=== PATIENT | male | born 1975 | race Caucasian/White ===

== ENCOUNTER 2022-10-28 11:55 | Emergency (ER) | payer BC, SELFPAY ==
--- OUTSIDE RECORDS SUMMARY | 2022-10-28 11:59 | XMS REPORT | Continuity of Care Document ---
:1975 Author Organization [facility] t Address [address] [place] [id number] Care Team Providers Name Role Phone Jonny HOGAN, Millie Rainey Primary Care Physician [phone] MINDI PATRICK Attending Clinician Unavailable MAGALIS FAUSTIN Attending Clinician Unavailable LAB90 Attending Clinician Unavailable MILLIE BLOUNT Attending Clinician Unavailable DALE BAUTISTA Attending Clinician Unavailable JOSE VILLAGOMEZ Attending Clinician Unavailable JOSE BARRON Attending Clinician Unavailable CARIDAD DUDLEY Attending Clinician Unavailable MOHSEN MAGAÑA Attending Clinician Unavailable Rebeca Ray Attending Clinician Heavenly Parada PA-C Attending Clinician [phone] ASHWINI SIMEON Attending Clinician Unavailable Ashwini Smith Attending Clinician JOSTIN BAILON Attending Clinician Unavailable Millie Blount MD Attending Clinician [phone] Payers Payer Name Policy Type Policy Number Effective Date Expiration Date S suzi BCBS 2 [id number] 2021 00:00:00 Problems Condition Condition Condition Status Onset Resolution Last Treating Co mments Source Name Details Category Date Date Treatment Clinician Date Pharyngiti Pharyngiti Disease Active Overview : Aurroa miller 3-13 [facility] 00:00: g of note Externa might be l different from the original. AcuteDaug hter has strep throatLas t Assessmen t & Plan: Formattin g of this note might be different from the original. Not Controlle d amoxicill in 875mg po twice daily for 10 days. Continue to drink fluids and take tylenol as needed for pain/feve rs. Work note-off till 09/04/22Ca ll pcp if no improveme nt in 3-4 days. Patient verbalize d nora ferrer. No known No known Disease Kelse y active active Seybold problems problems - Externa l Allergies, Adverse Reactions, Alerts Allergy Allergy Status Severity Reaction(s) Onset Inactive Treating Comm ents Source Name Type Date Date Clinician Tramadol Propensi Active Other Drowsy, Kelse y ty to 6-24 sedated Seybold adverse 00:00: - reaction 00 Externa s l Social History Social Habit Start Date Stop Date Quantity Comments Source Gender identity 2022-06-29 Identifies as male Rasheed de luna Seybold 08:42:02 gender (finding) - Manager Underwriting al Sexual orientation 2022-06-29 Heterosexual Keena johansen Seybold 08:42:02 (finding) - External History of tobacco Current smoker Riley ram Seybasher use - External History of Social 2021-09-09 2021-09-09 [facility] Vallejoybold function 00:00:00 00:00:00 - External Tobacco use and 2021-09-09 2021-09-09 Smokeless tobacco Riley ram Seybold exposure 00:00:00 00:00:00 non-user - External Sex Ass[birth year] At [birth year] M [facility] Vallejo ybasher 00:00:00 00:00:00 - External Smoking Status Start Date Stop Date Source Ex-smoker 2021-09-09 00:00:00 2021-09-09 00:00:00 [facility] johansenbold - External Medications Ordered Filled Start Stop Current Ordering Indication Dosage Frequency Signature Comments Components Source Medication Medication Date Date Medication? Clinician (SIG) Name Name Albuterol Yes 2{puff} Q4H Inhale 2 K elsey Sulfate 108 5-09 puffs into ybold (90 Base) 10:30: the lungs - MCG/ACT 21 every 4 Externa inhalation hours as l AEROSOL needed POWDER, BREATH ACTIVATED Levalbutero 2023-0 Yes 1.25mg Q4H Take 0.5 [facility] l HCl 1.25 5-09 mL (1.25 Seybo ld MG/0.5ML 10:30: mg total) - inhalation 21 by Externa Inhalant nebulizati l Solution on every 4 hours as needed for wheezing Albuterol 0 Yes 2.5mg Take 2.5 Jr sey Sulfate 2.5 5-09 mg by Seybold MG/0.5ML 10:30: nebulizati - inhalation 21 on 4 times Ext adam Inhalant daily l Solution Montelukast Yes [id number] 10mg Take 1 [facility] (SINGULAIR) 4-18 tablet (10 Se ybold 10 MG oral 00:00: mg total) - Tablet 00 by mouth Externa tablet nightly l Tiotropium Yes 2{puff} Inhale 2 [facility] Warner-Olo 4-18 puffs into Se ybold daterol 00:00: the lungs - (Stiolto 00 daily Externa Respimat) l 2.5-2.5 MCG/ACT inhalation Aerosol Solution Allopurinol Yes [id number] 300mg Take 1 [facility] 300 MG oral 4-18 tablet Seybol d Tablet 00:00: (300 mg - 00 total) by Externa mouth l daily Omeprazole Yes [id number] 40mg Take 1 [facility] 40 MG oral 4-18 capsule Seybol d Delayed 00:00: (40 mg - Release 00 total) by Externa Capsule mouth l daily Atorvastati 0 Yes [id number] 20mg Take 1 [facility] n Calcium 4-18 tablet (20 Seyb old 20 MG oral 00:00: mg total) - Tablet 00 by mouth Externa daily l Albuterol 0 Yes [id number] 2{puff} Q.25D Inhale 2 [facility] HFA 108 (90 4-18 puffs into Se ybold Base) 00:00: the lungs - MCG/ACT IN 00 every 6 Manager Underwriting a AERS hours as l needed for wheezing Montelukast 0 Yes [id number] 10mg Take 1 [facility] (SINGULAIR) 4-18 tablet (10 Se ybold 10 MG oral 00:00: mg total) - Tablet 00 by mouth Externa tablet nightly l Tiotropium Yes 2{puff} Inhale 2 [facility] Warner-Olo 4-[facility]: the lungs - (Stiolto 00 daily Externa Respimat) l 2.5-2.5 MCG/ACT inhalation Aerosol Solution Allopurinol Yes [id number] 300mg Take 1 [facility] 300 MG oral 4-18 tablet Seybol d Tablet 00:00: (300 mg - 00 total) by Externa mouth l daily Omeprazole Yes [id number] 40mg Take 1 [facility] 40 MG oral 4-18 capsule Seybol d Delayed 00:00: (40 mg - Release 00 total) by Externa Capsule mouth l daily Atorvastati Yes [id number] 20mg Take 1 [facility] n Calcium 4-18 tablet (20 Seyb old 20 MG oral 00:00: mg total) - Tablet 00 by mouth Externa daily l Albuterol Yes [id number] 2{puff} Q.25D Inhale 2 [facility] HFA 108 (90 4-18 puffs into ybold Base) 00:00: the lungs - MCG/ACT IN 00 every 6 Manager Underwriting a AERS hours as l needed for wheezing Pneumococca 2022- No [id number] Administer [facility] l 15-Mallika 4-18 04-18 one. Seybold Conj 00:00: 00:00 - Vaccine 00 :00 Externa (VAXNEUVANC l E) 0.5 mL Intramuscul ar Suspension Omeprazole 2022- No [id number] TAKE 1 [facility] 20 MG oral 4-03 04-18 CAPSULE BY Se ybold Delayed 00:00: 00:00 MOUTH IN - Release 00 :00 THE Externa Capsule EVENING l AND 1 CAPSULE BY MOUTH IN THE EVENING Allopurinol 2022- No [id number] Take 1 [facility] 300 MG oral 3-27 04-18 tablet by Se ybold Tablet 00:00: 00:00 mouth once - 00 :00 daily Externa l Atorvastati 2022- No [id number] Take 1 [facility] n Calcium 3-27 04-18 tablet by Seyb old 20 MG oral 00:00: 00:00 mouth once - Tablet 00 :00 daily Externa l Montelukast 2022-0 3- No [id number] Take 1 [facility] (SINGULAIR) 3-27 04-18 tablet by Se ybold 10 MG oral 00:00: 00:00 mouth - Tablet 00 :00 nightly Externa tablet l Amoxicillin 2022-0 Yes [id number] 875mg Take 1 [facility] 875 MG oral 3-13 tablet Seybol d Tablet 00:00: (875 mg - 00 total) by Externa mouth 2 l times daily Amoxicillin 2022-0 Yes [id number] 875mg Take 1 [facility] 875 MG oral 3-13 tablet Seybol d Tablet 00:00: (875 mg - 00 total) by Externa mouth 2 l times daily Amoxicillin 2022-0 Yes [id number] 875mg Take 1 [facility] 875 MG oral 3-13 tablet Seybol d Tablet 00:00: (875 mg - 00 total) by Externa mouth 2 l times daily Albuterol Yes 2.5mg Take 2.5 Jr sey Sulfate 2.5 1-09 mg by Seybold MG/0.5ML 09:32: nebulizati - inhalation 36 on 4 times Ext adam Inhalant daily l Solution Albuterol 0 Yes 2{puff} Q4H Inhale 2 K elsey Sulfate 108 1-09 puffs into Se ybold (90 Base) 09:32: the lungs - MCG/ACT 36 every 4 Externa inhalation hours as l AEROSOL needed POWDER, BREATH ACTIVATED Levalbutero Yes 1.25mg Q4H Take 1.25 [facility] l HCl 1.25 1-09 mg by Seybold MG/0.5ML 09:32: nebulizati - inhalation 36 on every 4 Ext adam Inhalant hours as l Solution needed for wheezing Albuterol Yes 2.5mg Take 2.5 Jr sey Sulfate 2.5 1-09 mg by Seybold MG/0.5ML 09:32: nebulizati - inhalation 36 on 4 times Ext adam Inhalant daily l Solution Albuterol 0 Yes 2{puff} Q4H Inhale 2 K elsey Sulfate 108 1-09 puffs into Se ybold (90 Base) 09:32: the lungs - MCG/ACT 36 every 4 Externa inhalation hours as l AEROSOL needed POWDER, BREATH ACTIVATED Levalbutero Yes 1.25mg Q4H Take 1.25 [facility] l HCl 1.25 1-09 mg by Seybold MG/0.5ML 09:32: nebulizati - inhalation 36 on every 4 Ext adam Inhalant hours as l Solution needed for wheezing Albuterol Yes 2.5mg Take 2.5 Jr sey Sulfate 2.5 1-09 mg by Seybold MG/0.5ML 09:32: nebulizati - inhalation 36 on 4 times Ext adam Inhalant daily l Solution Albuterol 0 Yes 2{puff} Q4H Inhale 2 K elsey Sulfate 108 1-09 puffs into Se ybold (90 Base) 09:32: the lungs - MCG/ACT 36 every 4 Externa inhalation hours as l AEROSOL needed POWDER, BREATH ACTIVATED Levalbutero Yes 1.25mg Q4H Take 1.25 [facility] l HCl 1.25 1-09 mg by Seybold MG/0.5ML 09:32: nebulizati - inhalation 36 on every 4 Ext adam Inhalant hours as l Solution needed for wheezing Albuterol Yes 2.5mg Take 2.5 Jr sey Sulfate 2.5 1-09 mg by Seybold MG/0.5ML 09:32: nebulizati - inhalation 36 on 4 times Ext adam Inhalant daily l Solution Albuterol 0 Yes 2{puff} Q4H Inhale 2 K elsey Sulfate 108 1-09 puffs into Se ybold (90 Base) 09:32: the lungs - MCG/ACT 36 every 4 Externa inhalation hours as l AEROSOL needed POWDER, BREATH ACTIVATED Levalbutero 0 Yes 1.25mg Q4H Take 1.25 [facility] l HCl 1.25 1-09 mg by Seybold MG/0.5ML 09:32: nebulizati - inhalation 36 on every 4 Ext adam Inhalant hours as l Solution needed for wheezing Azithromyci 2022-0 3- No [id number] Take 2 [facility] n 250 MG 06-29-15 tablets by Seyb old oral Tablet 00:00: 05:59 mouth on - 00 :00 day 1 then Externa 1 tablet l by mouth daily for 4 days thereafter . Azithromyci 2022- No [id number] Take 2 [facility] n 250 MG 06-29 tablets by Seyb old oral Tablet 00:00: 05:59 mouth on - 00 :00 day 1 then Externa 1 tablet l by mouth daily for 4 days thereafter . Omeprazole 2021-06 Yes [id number] TAKE 1 [facility] 20 MG oral 2-19 CAPSULE BY Lashonda bold Delayed 00:00: MOUTH IN - Release 00 THE Externa Capsule MORNING l AND 1 IN THE EVENING Omeprazole 2021-06 Yes [id number] TAKE 1 [facility] 20 MG oral 2-19 CAPSULE BY Lashonda [employer] Delayed 00:00: MOUTH IN - Release 00 THE Externa Capsule MORNING l AND 1 IN THE EVENING Omeprazole 2021-06 Yes [id number] TAKE 1 [facility] 20 MG oral 2-19 CAPSULE BY Lashonda [employer] Delayed 00:00: MOUTH IN - Release 00 THE Externa Capsule MORNING l AND 1 IN THE EVENING Tiotropium 2021-06 Yes [id number] 2{puff} Inhale 2 [facility] Warner-Olo 0-18 puffs into Se ybold daterol 00:00: the lungs - (Stiolto 00 daily Externa Respimat) l 2.5-2.5 MCG/ACT inhalation Aerosol Solution Tiotropium 2021-06 Yes [id number] 2{puff} Inhale 2 [facility] Warner-Olo 0-18 puffs into Se ybold daterol 00:00: the lungs - (Stiolto 00 daily Externa Respimat) l 2.5-2.5 MCG/ACT inhalation Aerosol Solution Tiotropium 2021-06 Yes [id number] 2{puff} Inhale 2 [facility] Warner-Olo 0-18 puffs into Se ybold daterol 00:00: the lungs - (Stiolto 00 daily Externa Respimat) l 2.5-2.5 MCG/ACT inhalation Aerosol Solution Tiotropium 2021-06- No [id number] 2{puff} Inhale 2 [facility] Warner-Olo 0-18 04-18 puffs into S eybold daterol 00:00: 00:00 the lungs - (Stiolto 00 :00 daily Externa Respimat) l 2.5-2.5 MCG/ACT inhalation Aerosol Solution Albuterol Yes 2.5mg Take 2.5 Jr sey Sulfate 2.5 6-07 mg by Seybold MG/0.5ML 18:34: nebulizati inhalation 08 on 4 times Inhalant daily Solution Tiotropium Yes 2{puff} Inhale 2 [facility] Warner-Olo 6-07 puffs into Se ybold daterol 18:33: the lungs (Stiolto 42 daily Respimat) 2.5-2.5 MCG/ACT inhalation Aerosol Solution Albuterol Yes 2{puff} Q4H Inhale 2 K elsey Sulfate 108 6-07 puffs into Se ybold (90 Base) 18:33: the lungs MCG/ACT 42 every 4 inhalation hours as AEROSOL needed POWDER, BREATH ACTIVATED Levalbutero Yes 1.25mg Q4H Take 1.25 [facility] l HCl 1.25 6-07 mg by Seybold MG/0.5ML 18:33: nebulizati inhalation 42 on every 4 Inhalant hours as Solution needed for wheezing Cetirizine 2021-2021- No 10mg Take 10 mg [facility] 10 MG oral 6- 06-07 by mouth Seyb old Tablet 18:33: 00:00 daily 42 :00 Amoxicillin Yes [id number] 1{tbl} Take 1 [facility] -Pot 6-07 tablet by Seybold Clavulanate 00:00: mouth in - 875-125 MG 00 the Externa oral Tablet morning l and 1 tablet in the evening. Benzonatate Yes [id number] 100mg Q.[id number] Take 1 [facility] 100 MG oral 6-07 [id number] capsule Seybold Capsule 00:00: 3D (100 mg - 00 total) by Externa mouth 3 l times daily as needed for cough FLUTICASONE 0 Yes [id number] 50ug Use 1 K elsey PROPIONATE, 6-07 spray (50 Sey bold NASAL, 50 00:00: mcg total) - MCG/ACT 00 in each Externa nasal nostril l Suspension daily Amoxicillin Yes [id number] 1{tbl} Take 1 [facility] -Pot 6-07 tablet by Seybold Clavulanate 00:00: mouth in - 875-125 MG 00 the Externa oral Tablet morning l and 1 tablet in the evening. Benzonatate 0 Yes [id number] 100mg Q.[id number] Take 1 [facility] 100 MG oral 6-07 [id number] capsule Seybold Capsule 00:00: 3D (100 mg - 00 total) by Externa mouth 3 l times daily as needed for cough FLUTICASONE 2021-0 Yes [id number] 50ug Use 1 K elsey PROPIONATE, 6-07 spray (50 Sey bold NASAL, 50 00:00: mcg total) - MCG/ACT 00 in each Externa nasal nostril l Suspension daily Benzonatate 2021-0 Yes [id number] 100mg Q.[id number] Take 1 [facility] 100 MG oral 6-07 [id number] capsule Seybold Capsule 00:00: 3D (100 mg - 00 total) by Externa mouth 3 l times daily as needed for cough FLUTICASONE 2021-0 Yes [id number] 50ug Use 1 K elsey PROPIONATE, 6-07 spray (50 Sey bold NASAL, 50 00:00: mcg total) - MCG/ACT 00 in each Externa nasal nostril l Suspension daily Amoxicillin 2021-0 Yes [id number] 1{tbl} Take 1 [facility] -Pot 6-07 tablet by Seybold Clavulanate 00:00: mouth in 875-125 MG 00 the oral Tablet morning and 1 tablet in the evening. Benzonatate 2021-0 Yes [id number] 100mg Q.[id number] Take 1 [facility] 100 MG oral 6-07 [id number] capsule Seybold Capsule 00:00: 3D (100 mg 00 total) by mouth 3 times daily as needed for cough FLUTICASONE 2021-0 Yes [id number] 50ug Use 1 K elsey PROPIONATE, 6-07 spray (50 Sey bold NASAL, 50 00:00: mcg total) MCG/ACT 00 in each nasal nostril Suspension daily Benzonatate 0 3- No [id number] 100mg Q.[id number] Take 1 [facility] 100 MG oral 6-07 04-18 [id number] capsule Seybold Capsule 00:00: 00:00 3D (100 mg - 00 :00 total) by Externa mouth 3 l times daily as needed for cough FLUTICASONE 2022- No [id number] 50ug Use 1 [facility] PROPIONATE, 11-25 04-18 spray (50 Se ybold NASAL, 50 00:00: 00:00 mcg total) - MCG/ACT 00 :00 in each Externa nasal nostril l Suspension daily Amoxicillin 2022- No [id number] 1{tbl} Take 1 [facility] -Pot 6-07 03-13 tablet by Seybold Clavulanate 00:00: 00:00 mouth in - 875-125 MG 00 :00 the Externa oral Tablet morning l and 1 tablet in the evening. Amoxicillin Yes [id number] 1{tbl} Take 1 [facility] -Pot 4-15 tablet by Seybold Clavulanate 00:00: mouth in 875-125 MG 00 the oral Tablet morning and 1 tablet in the evening. Amoxicillin 2021- No [id number] 1{tbl} Take 1 [facility] -Pot 4-15 06-07 tablet by Seybold Clavulanate 00:00: 00:00 mouth in 875-125 MG 00 :00 the oral Tablet morning and 1 tablet in the evening. Tiotropium Yes 2{puff} Inhale 2 [facility] Warner-Olo 4-12 puffs into Se ybold daterol 15:16: the lungs (Stiolto 39 daily Respimat) 2.5-2.5 MCG/ACT inhalation Aerosol Solution Cetirizine Yes 10mg Take 10 mg K elsey 10 MG oral 4-12 by mouth Seybo ld Tablet 15:16: daily 39 Tiotropium Yes 2{puff} Inhale 2 [facility] Warner-Olo 4-12 puffs into Se ybold daterol 15:16: the lungs (Stiolto 39 daily Respimat) 2.5-2.5 MCG/ACT inhalation Aerosol Solution Cetirizine Yes 10mg Take 10 mg K elsey 10 MG oral 4-12 by mouth Seybo ld Tablet 15:16: daily 39 Azithromyci 0 Yes [id number] Take 2 [facility] n 250 MG 4-12 tablets by Seybo ld oral Tablet 00:00: mouth on day 1 then 1 tablet by mouth daily for 4 days thereafter . Pseudoeph-B 2021-0 Yes [id number] 10mL Q.25D Take 10 mL [facility] romphen-DM 4-12 by mouth 4 Sey bold (Bromfed 00:00: times DM) 30- 00 daily as MG/5ML oral needed Syrup Omeprazole 2-0 Yes [id number] 20mg Take 1 [facility] 20 MG oral 4-12 capsule Seybol d Delayed 00:00: (20 mg Release 00 total) by Capsule mouth in the morning and 1 capsule (20 mg total) in the evening. Azithromyci 2021-0 Yes [id number] Take 2 [facility] n 250 MG 4-12 tablets by Seybo ld oral Tablet 00:00: mouth on 1 then 1 tablet by mouth daily for 4 days thereafter . Pseudoeph-B 2021-0 Yes [id number] 10mL Q.25D Take 10 mL [facility] romphen-DM 4-12 by mouth 4 Sey bold (Bromfed 00:00: times DM) 00 daily as MG/5ML oral needed Syrup Omeprazole 2021-0 Yes [id number] 20mg Take 1 [facility] 20 MG oral 4-12 capsule Seybol d Delayed 00:00: (20 mg Release 00 total) by Capsule mouth in the morning and 1 capsule (20 mg total) in the evening. Omeprazole 2-0 Yes [id number] 20mg Take 1 [facility] 20 MG oral 4-12 capsule Seybol d Delayed 00:00: (20 mg Release 00 total) by Capsule mouth in the morning and 1 capsule (20 mg total) in the evening. Azithromyci 2-0 2022- No [id number] Take 2 [facility] n 250 MG 4-12 06-07 tablets by Seyb old oral Tablet 00:00: 00:00 mouth on day 1 then 1 tablet by mouth daily for 4 days thereafter . Pseudoeph-B 2021-0 2022- No [id number] 10mL Q.25D Take 10 mL [facility] romphen-DM 4-12 06-07 by mouth 4 Se ybold (Bromfed 00:00: 00:00 times DM) 30 00 :00 daily as MG/5ML oral needed Syrup Allopurinol 2021- No 300mg Take 300 [facility] 300 MG oral 3-22 03-22 mg by Seybol d Tablet 11:32: 00:00 mouth 32 :00 daily Montelukast 2021- No 10mg Take 10 mg [facility] (SINGULAIR) 3-22 03-22 by mouth Sey bold 10 MG oral 11:32: 00:00 nightly Tablet 32 :00 tablet Tiotropium Yes 2{puff} Inhale 2 [facility] Warner-Olo 3-22 puffs into Se ybold daterol 11:04: the lungs (Stiolto 45 daily Respimat) 2.5-2.5 MCG/ACT inhalation Aerosol Solution Cetirizine Yes 10mg Take 10 mg K elsey (Allergy 3-22 by mouth Seybold 24Hour 11:04: daily Indoor/Outd 45 oor) 10 MG oral Tablet Allopurinol Yes [id number] 300mg Take 1 [facility] 300 MG oral 3-22 tablet Seybol d Tablet 00:00: (300 mg - 00 total) by Externa mouth l daily Montelukast Yes [id number] 10mg Take 1 [facility] (SINGULAIR) 3-22 tablet (10 Se ybold 10 MG oral 00:00: mg total) - Tablet 00 by mouth Externa tablet nightly l Atorvastati Yes [id number] 20mg Take 1 [facility] n Calcium 3-22 tablet (20 Seyb old 20 MG oral 00:00: mg total) - Tablet 00 by mouth Externa daily l Allopurinol Yes [id number] 300mg Take 1 [facility] 300 MG oral 3-22 tablet Seybol d Tablet 00:00: (300 mg - 00 total) by Externa mouth l daily Montelukast Yes [id number] 10mg Take 1 [facility] (SINGULAIR) 3-22 tablet (10 Se ybold 10 MG oral 00:00: mg total) - Tablet 00 by mouth Externa tablet nightly l Atorvastati Yes [id number] 20mg Take 1 [facility] n Calcium 3-22 tablet (20 Seyb old 20 MG oral 00:00: mg total) - Tablet 00 by mouth Externa daily l Allopurinol 0 Yes [id number] 300mg Take 1 [facility] 300 MG oral 3-22 tablet Seybol d Tablet 00:00: (300 mg - 00 total) by Externa mouth l daily Montelukast 0 Yes [id number] 10mg Take 1 [facility] (SINGULAIR) 3-22 tablet (10 Se ybold 10 MG oral 00:00: mg total) - Tablet 00 by mouth Externa tablet nightly l Atorvastati 0 Yes [id number] 20mg Take 1 [facility] n Calcium 3-22 tablet (20 Seyb old 20 MG oral 00:00: mg total) - Tablet 00 by mouth Externa daily l Amoxicillin 0 Yes [id number] 1{tbl} Take 1 [facility] -Pot 3-22 tablet by Seybold Clavulanate 00:00: mouth in 875-125 MG 00 the oral Tablet morning and 1 tablet in the evening. Allopurinol Yes [id number] 300mg Take 1 [facility] 300 MG oral 3-22 tablet Seybol d Tablet 00:00: (300 mg 00 total) by mouth daily Montelukast 0 Yes [id number] 10mg Take 1 [facility] (SINGULAIR) 3-22 tablet (10 Se ybold 10 MG oral 00:00: mg total) Tablet 00 by mouth tablet nightly Atorvastati 0 Yes [id number] 20mg Take 1 [facility] n Calcium 3-22 tablet (20 Seyb old 20 MG oral 00:00: mg total) Tablet 00 by mouth daily Allopurinol 0 Yes [id number] 300mg Take 1 [facility] 300 MG oral 3-22 tablet Seybol d Tablet 00:00: (300 mg 00 total) by mouth daily Montelukast 0 Yes [id number] 10mg Take 1 [facility] (SINGULAIR) 3-22 tablet (10 Se ybold 10 MG oral 00:00: mg total) Tablet 00 by mouth tablet nightly Atorvastati 0 Yes [id number] 20mg Take 1 [facility] n Calcium 3-22 tablet (20 Seyb old 20 MG oral 00:00: mg total) Tablet 00 by mouth daily Allopurinol Yes [id number] 300mg Take 1 [facility] 300 MG oral 3-22 tablet Seybol d Tablet 00:00: (300 mg 00 total) by mouth daily Montelukast Yes [id number] 10mg Take 1 [facility] (SINGULAIR) 3-22 tablet (10 Se ybold 10 MG oral 00:00: mg total) Tablet 00 by mouth tablet nightly Atorvastati Yes [id number] 20mg Take 1 [facility] n Calcium 3-22 tablet (20 Seyb old 20 MG oral 00:00: mg total) Tablet 00 by mouth daily Allopurinol Yes [id number] 300mg Take 1 [facility] 300 MG oral 3-22 tablet Seybol d Tablet 00:00: (300 mg 00 total) by mouth daily Montelukast Yes [id number] 10mg Take 1 [facility] (SINGULAIR) 3-22 tablet (10 Se ybold 10 MG oral 00:00: mg total) Tablet 00 by mouth tablet nightly Atorvastati Yes [id number] 20mg Take 1 [facility] n Calcium 3-22 tablet (20 Seyb old 20 MG oral 00:00: mg total) Tablet 00 by mouth daily Amoxicillin 2021- No [id number] 1{tbl} Take 1 [facility] -Pot 3-22 04-12 tablet by Seybold Clavulanate 00:00: 00:00 mouth in 875-125 MG 00 :00 the oral Tablet morning and 1 tablet in the evening. Methocarbam Yes 1{tbl} Take 1 Ke lsey ol 500 MG 3-03 tablet by Seybo ld oral Tablet 00:00: mouth 00 daily Methocarbam Yes 1{tbl} Take 1 Ke lsey ol 500 MG 3-03 tablet by Seybo ld oral Tablet 00:00: mouth 00 daily Methocarbam Yes 1{tbl} Take 1 Ke lsey ol 500 MG 3-03 tablet by Seybo ld oral Tablet 00:00: mouth 00 daily Methocarbam 2021- No 1{tbl} Take 1 K elsey ol 500 MG 3-03 06-07 tablet by Seyb old oral Tablet 00:00: 00:00 mouth 00 :00 daily Immunizations Ordered Immunization Filled Immunization Date Status Commen ts Source Name Name Pneumococcal 2022-10-06 Completed [facility] Vallejoybo ld Conjugate 15 00:00:00 - External (Vaxneuvance) Pneumococcal 2022-10-06 Completed [facility] Seybo ld Conjugate 15 00:00:00 - External (Vaxneuvance) Vital Signs Vital Name Observation Time Observation Value Comments Source Systolic blood 2022-10-06 21:31:00 142 mm[Hg] [facility] Seybold - pressure External Diastolic blood 2022-10-06 21:31:00 84 mm[Hg] Kelse y Seybold - pressure External Heart rate 2022-10-06 21:31:00 87 /min [facility] S eybold - External Body temperature 2022-10-06 21:31:00 36.39 Luci Keena ey Seybold - External Respiratory rate 2022-10-06 21:31:00 16 /min Keena ey Seybold - External Body height 2022-10-06 21:31:00 165.1 cm [facility] S eybold - External Body weight 2022-10-06 21:31:00 95.709 kg [facility] S eybold - External BMI 2022-10-06 21:31:00 35.11 kg/m2 [facility] S eybold - External Oxygen saturation in 2022-10-06 21:31:00 96 /min [facility] Sheehan - Arterial blood by External Pulse oximetry Body height 2022-06-29 15:30:00 165.1 cm [facility] S eybold - External Body weight 2022-06-29 15:30:00 90.719 kg [facility] S eybold - External BMI 2022-06-29 15:30:00 33.28 kg/m2 [facility] S eybold - External Systolic blood 2021-09-30 20:12:00 138 mm[Hg] [facility] Seybold pressure Diastolic blood 2021-09-30 20:12:00 66 mm[Hg] Kelse y Seybold pressure Heart rate 2021-09-30 20:12:00 72 /min [facility] S eybold Body temperature 2021-09-30 20:12:00 35.89 Luci Keena ey Seybold Respiratory rate 2021-09-30 20:12:00 14 /min Keena ey Seybold Body height 2021-09-30 20:12:00 165.1 cm [facility] Miller eybold Body weight 2021-09-30 20:12:00 92.08 kg [facility] Miller eybold BMI 2021-09-30 20:12:00 33.78 kg/m2 [facility] S eybold Systolic blood 2021-09-09 16:02:00 160 mm[Hg] [facility] Seybold pressure Diastolic blood 2021-09-09 16:02:00 63 mm[Hg] Kelse y Seybold pressure Heart rate 2021-09-09 16:02:00 77 /min [facility] johansenbold Body temperature 2021-09-09 16:02:00 36.89 Luci Keena ey Seybold Respiratory rate 2021-09-09 16:02:00 14 /min Keena ey Seybold Body height 2021-09-09 16:02:00 165.1 cm [facility] johansenbosai Body weight 2021-09-09 16:02:00 92.715 kg [facility] johansenbosai BMI 2021-09-09 16:02:00 34.01 kg/m2 [facility] johansenbold Oxygen saturation in 2021-09-09 16:02:00 99 /min [facility] Sheehan Arterial blood by Pulse oximetry Procedures This patient has no known procedures. Encounters Start End Encounter Admission Attending Care Care Encounter Source Date/Time Date/Time Type Type Clinicians Facility Department ID 2022-10-28 2022-10-28 Outpatient [facility] PATRICK [id number] [facility] 10:00:00 10:00:00 MINDI Seybol d 2022-10-28 2022-10-28 Outpatient [facility] FAUSTIN [id number] [facility] 00:00:00 00:00:00 MAGALIS Seybol d 2022-10-27 2022-10-27 Outpatient [facility]90 [facility] SALINAS [id number] [facility] 16:35:00 16:35:00 Seybol d 2022-10-27 2022-10-27 Outpatient [facility] FAUSTIN [id number] [facility] 10:45:00 10:45:00 MAGALIS Seybol d 2022-10-06 2022-10-06 Outpatient [facility] [id number] [place] 16:30:00 16:30:00 MILLIE Seybol d 2022-10-06 2022-10-06 Outpatient [facility] [id number] [place] 16:00:00 16:00:00 MILLIE Seybol d 2022-09-21 2022-09-21 Outpatient [facility] [id number] [place] 00:00:00 00:00:00 MILLIE Seybol d 2022-09-19 2022-09-19 Outpatient [facility] [id number] [place] 00:00:00 00:00:00 MILLIE Seybol d 2022-09-12 2022-09-12 Outpatient [facility] [id number] [place] 00:00:00 00:00:00 MILLIE Seybol d 2022-09-10 2022-09-10 Outpatient [facility] BAUTISTA [id number] [place] 11:00:00 11:00:00 DALE Seybol d 2022-09-01 2022-09-01 Outpatient [facility] VILLAGOMEZ [id number] [place] 00:00:00 00:00:00 JOSE Seybol d 2022-08-31 2022-08-31 Outpatient [facility] BARRON [id number] [place] 20:00:00 20:00:00 JOSE Seybol d 2022-08-31 2022-08-31 Outpatient [facility] BARRON [id number] [place] 00:00:00 00:00:00 JOSE Seybol d 2022-07-04 2022-07-04 Outpatient [facility] DUDLEY [id number] [place] 15:15:00 15:15:00 CARIDAD Seybol d 2022-06-29 2022-06-29 Outpatient A[facility]A MAGAÑA [id number] [place] 09:30:00 09:30:00 MOHSEN Seybol d 2022-06-03 2022-06-03 Outpatient [facility] BL[facility] [id number] [place] 00:00:00 00:00:00 MILLIE Seybol d 2022-01-26 2022-01-26 E-Visit CLARISSA Castañeda [id number] [place] 11:20:00 12:01:27 Rebeca [id number] Se ybold [id number] 2021-11-25 2021-11-25 Telemedici Aj Parada [id number] [place] 18:30:00 18:44:48 ne [facility] [id number] Seybold Abida [id number] 2021-11-12 2021-11-12 Outpatient AUR[facility]A SIMEON [id number] [place] 00:00:00 00:00:00 ASHWINI Seybol d 2021-10-31 2021-10-31 Outpatient [facility] SIMEON [id number] [place] 00:00:00 00:00:00 ASHWINI Seybol d 2021-10-31 2021-10-31 Outpatient [facility]A SIMEON [id number] [place] 00:00:00 00:00:00 ASHWINI Seybol d 2021-10-29 2021-10-29 Telemedici LURDES Simeon [id number] [place] 16:00:00 16:17:37 ne [facility] [id number] Se ybold [id number] 2021-10-29 2021-10-29 Outpatient AUR[facility]A SIMEON [id number] [place] 00:00:00 00:00:00 ASHWINI Seybol d 2021-10-22 2021-10-22 Outpatient [facility]A SALINAS [id number] [place] 15:30:00 15:30:00 Seybol d 2021-10-21 2021-10-21 Outpatient A[facility]A BAILON [id number] [place] 16:30:00 16:30:00 JOSTIN Seybol d 2021-10-03 2021-10-03 Outpatient [facility] [id number] [place] 00:00:00 00:00:00 MILLIE Seybol d 2021-10-03 2021-10-03 Outpatient [facility] BLOUNT [id number] [place] 00:00:00 00:00:00 MILLIE Seybol d 2021-10-03 2021-10-03 Outpatient [facility] BL[facility] [id number] [place] 00:00:00 00:00:00 MILLIE Seybol d 2021-09-30 2021-09-30 Office Tucker Blount [id number] [place] 15:30:00 15:45:00 Visit Millie Arenas [id number] Se ybasher Somogyi [id number] 2021-09-09 2021-09-09 Office Tucker Blount [id number] [place] 10:45:00 11:15:00 Visit Millie Arenas [id number] Se scarlett Somogyi [id number] Results This patient has no known results.
[2022-10-28] MEDS ORDERED: KETOROLAC 30 MG/ML INJ ONE (12:34)
[2022-10-28] MEDS ORDERED: MORPHINE 4 MG/ML SYR ONE (12:34)
[2022-10-28] MEDS ORDERED: NA CHLORIDE 0.9% 1,000 ML ONE (12:34)
[2022-10-28] MEDS ORDERED: ONDANSETRON 4 MG/2 ML VIAL ONE (12:34)
--- NOTE | 2022-10-28 12:35 | RAD REPORT ---
EXAM DESCRIPTION: CTAbdomen Pelvis Wo Contrast - 10/28/2022 12:26 pm CLINICAL HISTORY: KIDNEY STONES COMPARISON: Stone Protocol dated 10/24/2022 TECHNIQUE: CT of the abdomen and pelvis was performed. All CT scans are performed using dose optimization technique as appropriate and may include automated exposure control or mA/KV adjustment according to patient size. FINDINGS: Lower chest: Left basilar scarring. Liver: Hepatic steatosis Biliary: Cholecystectomy Stomach: No significant focal abnormality. Duodenum: No significant focal abnormality. Pancreas: No significant abnormality. Spleen: No significant abnormality. Adrenal: No suspicious lesions. Kidney/ureter: Similar moderate left-sided hydroureteronephrosis secondary to a 4 mm stone which is a t the left UVJ, just slightly further downstream compared with 10/24/2022 . Retroperitoneum: No retroperitoneal adenopathy. Vascular: No aneurysm. Bowel: No significant focal abnormality. Diverticulosis without diverticulitis. Peritoneum: No ascites or free air. Fat containing ventral hernia. Prior ventral hernia repair. Bladder: Grossly unremarkable. Reproductive: No adnexal masses. Bones: No acute fracture. Other: n/a IMPRESSION: Persistent moderate left-sided hydroureteronephrosis with 4 mm stone that is now impacte d at the left UVJ.
[2022-10-28 13:00] LABS: Albumin 3.6 g/dL (3.4-5.0); Protein, Total 8.1 g/dL (6.4-8.2)
[2022-10-28 13:08] LABS: Absolute Lymphocytes (CBC) 1.2 K/uL (0.7-4.9); Hematocrit 42.2 % (39.6-49.0); Lymphocytes % 8.1 % (15.3-44.8); MCV 86.6 fL (80-100); MPV 6.8 fL (7.6-11.3); RBC Red Blood Cell Count 4.87 M/uL (4.33-5.43)
[2022-10-28 14:28] LABS: Specific Gravity 1.015 (1.005-1.030); Urine Bilirubin NEGATIVE (Negative); Urine Blood Negative (Negative); Urine Clarity Clear (Clear); Urine Color Light-Yellow (Yellow); Urine Glucose NEGATIVE (Negative); Urine Protein NEGATIVE (Negative); Urine Urobilinogen Normal (Normal)
--- NOTE | 2022-10-28 14:40 | ER ---
Nurse's Notes [facility] Name: Aditya Alatorre Age: 47 yrs Sex: Male : 1975 Arrival Date: 10/28/2022 Time: 11:55 Bed 11 Private MD: Diagnosis: Kidney stone;Hydronephrosis Presentation: 10/28 12:04 Chief complaint: Patient states: L flank pain. Pt diagnosed with a 4 mm kidney stones, ss but reports the pain has come back, but not quite as bad as it was initially. Coronavirus screen: Client denies travel out of the [place] in the last 14 days. Ebola Screen: Patient denies exposure to infectious person. Patient denies travel to an Ebola-affected area in the 21 days before illness onset. Initial Sepsis Screen: Does the patient meet any 2 criteria? No. Patient's initial sepsis screen is negative. Does the patient have a suspected source of infection? No. Patient's initial sepsis screen is negative. Risk Assessment: Do you want to hurt yourself or someone else? Patient reports no desire to harm self or others. 12:04 Method Of Arrival: Ambulatory ss 12:04 Acuity: CANDELARIO 3 ss 15:14 Onset of symptoms was October 28, 2022. db Historical: - Allergies: 12:07 tramadol; ss - PMHx: 12:07 COPD; High Cholesterol; Kidney stone; spleep apnea; ss - Immunization history:: Adult Immunizations unknown. - Social history:: Smoking status: Patient denies any tobacco usage or history of. Screenin:46 [facility] ED Fall Risk Assessment (Adult) History of falling in the last 3 months, db including since admission No falls in past 3 months (0 pts) Confusion or Disorientation No (0 pts) Intoxicated or Sedated No (0 pts) Impaired Gait No (0 pts) Mobility Assist Device Used No (0 pt) Altered Elimination No (0 pt) Score/Fall Risk Level 0 - 2 = Low Risk Oriented to surroundings, Maintained a safe environment. Abuse screen: Denies threats or abuse. Denies injuries from another. Nutritional screening: No deficits noted. Tuberculosis screening: No symptoms or risk factors identified. Assessment: 12:29 Reassessment: patient with radiology. Family at bedside. db 12:35 Reassessment: patient returned to room. db 12:45 Reassessment: Patient appears in no apparent distress at this time. Patient and/or db family updated on plan of care and expected duration. Pain level reassessed. Patient is alert, oriented x 3, equal unlabored respirations, skin warm/dry/pink. kidney stone pain states similar pain to Wednesday. General: Appears in no apparent distress. uncomfortable, Behavior is calm, cooperative. Pain: Complains of pain in back and abdomen. GI: Bowel sounds present X 4 quads. Abd is soft Abdomen is tender to palpation in right lower quadrant and left lower quadrant. 13:09 Reassessment: Patient and/or family updated on plan of care and expected duration. Pain ap3 level reassessed. Patient is alert, oriented x 3, equal unlabored respirations, skin warm/dry/pink. Patient states feeling better. Patient states symptoms have improved. 15:10 Reassessment: Patient appears in no apparent distress at this time. Patient and/or db family updated on plan of care and expected duration. Pain level reassessed. Patient is alert, oriented x 3, equal unlabored respirations, skin warm/dry/pink. Patient states feeling better. Vital Signs: 12:04 BP 145 / 90; Pulse 100; Resp 18; Temp 98.4(TE); Pulse Ox 97% on R/A; Pain 8/10; ss 12:45 BP 136 / 86; Pulse 88; Resp 16; Pulse Ox 98% on R/A; db 15:13 BP 120 / 75; Pulse 84; Resp 16; Pulse Ox 96% on R/A; db 12:04 Pain Scale: Adult ss ED Course: 11:57 Patient arrived in ED. rg4 11:59 Diego Mckeon PA is PHCP. jmm 11:59 Peter Thornton DO is Attending Physician. jmm 12:07 Triage completed. ss 12:07 Arm band placed on right wrist. ss 12:23 Noy Centeno, GET is Primary Nurse. mb9 12:28 CT Abd/Pelvis - Without Contrast In Process Unspecified. EDMS 12:38 CBC with Diff Sent. em1 12:38 CMP Sent. em1 12:38 Initial lab(s) drawn, by me, sent to lab. Inserted saline lock: 20 gauge in right em1 wrist, using aseptic technique. Blood collected. 12:45 Patient has correct armband on for positive identification. Bed in low position. Call db light in reach. Side rails up X 1. Pulse ox on. NIBP on. 14:39 Vikash Lagunas MD is Referral Physician. ms3 15:13 No provider procedures requiring assistance completed. IV discontinued, intact, db bleeding controlled, No redness/swelling at site. Administered Medications: 12:44 Drug: NS 0.9% IV 1000 ml Route: IV; Rate: 1 bolus; Site: right wrist; db 14:00 Follow up: Response: No adverse reaction; IV Status: Completed infusion; IV Intake: db 1000ml 12:44 Drug: TORadol - Ketorolac IVP 15 mg Route: IVP; Site: right wrist; db 14:30 Follow up: Response: No adverse reaction db 12:44 Drug: Ondansetron IVP 4 mg Route: IVP; Site: right wrist; db 14:00 Follow up: Response: No adverse reaction db 12:44 Drug: morphine IVP or IV 4 mg Route: IVP; Infused Over: 4 mins; Site: right wrist; db 14:30 Follow up: Response: No adverse reaction db Medication: 15:13 VIS not applicable for this client. db Intake: 14:00 IV: 1000ml; Total: 1000ml. db Outcome: 14:39 Discharge ordered by . ms3 15:10 Discharged to home ambulatory, with family. db 15:10 Condition: stable 15:10 Discharge instructions given to patient, family, significant other, Instructed on discharge instructions, follow up and referral plans. Prescriptions given X 1. 15:15 Patient left the ED. db Signatures: Dispatcher [employer] EDMS Diego Mckeon PA PA jmm Martinez, Eric em1 Radha Funk, RN RN Kristen Jean Amanda RN RN santi3 Peter Thornton, DO ms3 Nicolle Licona RN RN db Noy Centeno RN RN mb9
--- NOTE | 2022-10-28 14:40 | EDPHYS ---
Physician Documentation [facility] Name: Aditya Alatorre Age: 47 yrs Sex: Male : 1975 Arrival Date: 10/28/2022 Time: 11:55 Bed 11 Private MD: ED Physician Peter Thornton HPI: 10/28 12:10 This 47 yrs old Male presents to ER via Ambulatory with complaints of Possible Kidney ms3 Stone. 12:10 47-year-old male with past medical history of COPD, kidney stones, hyperlipidemia, ms3 sleep apnea, gout presents with his for continued left flank pain. Patient was seen in the emergency department on Wednesday night and states the pain subsided. Patient states his pain returned this morning. Patient rates his pain an 8/10 and describes it as stabbing/pressure located in the left flank. Patient states he has been taking Tylenol and prescription pain medications at home without relief.. Historical: - Allergies: 12:07 tramadol; ss - PMHx: 12:07 COPD; High Cholesterol; Kidney stone; spleep apnea; ss - Immunization history:: Adult Immunizations unknown. - Social history:: Smoking status: Patient denies any tobacco usage or history of. ROS: 12:10 Constitutional: Negative for fever, and chills. Neck: Negative for injury, pain, and ms3 swelling, Cardiovascular: Negative for chest pain, and palpitations. Respiratory: Negative for shortness of breath, cough, wheezing, and pleuritic chest pain. 12:10 MS/Extremity: Negative for injury and deformity, Skin: Negative for injury, rash, and discoloration. 12:10 Back: Positive for flank pain, on the left. 12:10 All other systems are negative. Exam: 12:10 Constitutional: This is a well developed, well nourished patient who is awake, alert, ms3 and in no acute distress. Head/Face: Normocephalic, atraumatic. Neck: Trachea midline, no cervical lymphadenopathy. Supple, full range of motion without nuchal rigidity, or vertebral point tenderness. No Meningismus. Chest/axilla: Normal chest wall appearance and motion. Nontender with no deformity. Cardiovascular: Regular rate and rhythm with a normal S1 and S2. No gallops, murmurs, or rubs. Normal PMI, no JVD. No pulse deficits. Respiratory: Lungs have equal breath sounds bilaterally, clear to auscultation and percussion. No rales, rhonchi or wheezes noted. No increased work of breathing, no retractions or nasal flaring. Abdomen/GI: Soft, non-tender, with normal bowel sounds. No distension or tympany. No guarding or rebound. No evidence of tenderness throughout. Skin: Warm, dry with normal turgor. Normal color with no rashes, no lesions, and no evidence of cellulitis. 12:10 MS/ Extremity: Pulses equal, no cyanosis. Neurovascular intact. Full, normal range of motion. 12:10 Back: CVA tenderness. Vital Signs: 12:04 BP 145 / 90; Pulse 100; Resp 18; Temp 98.4(TE); Pulse Ox 97% on R/A; Pain 8/10; ss 12:45 BP 136 / 86; Pulse 88; Resp 16; Pulse Ox 98% on R/A; db 15:13 BP 120 / 75; Pulse 84; Resp 16; Pulse Ox 96% on R/A; db 12:04 Pain Scale: Adult ss MDM: 12:05 Patient medically screened. ms3 12:10 Differential diagnosis: nephrolithiasis, pyelonephritis, UTI. ms3 17:21 Data reviewed: vital signs, nurses notes, lab test result(s), radiologic studies, and ms3 as a result, I will discharge patient. I considered the following discharge prescriptions or medication management in the emergency department Medications were administered in the Emergency Department. See MAR. Historians other than the Patient: Spouse/Significant Other: Patient's . Response to treatment: the patient's symptoms have markedly improved after treatment, and as a result, I will discharge patient. Special discussion: I discussed with the patient/guardian in detail that at this point there is no indication for admission to the hospital. It is understood, however, that if the symptoms persist or worsen the patient needs to return immediately for re-evaluation. 10/28 12:07 Order name: CBC with Diff; Complete Time: 13:21 ms3 10/28 12:07 Order name: CMP; Complete Time: 13:07 ms3 10/28 12:07 Order name: Urinalysis w/ reflexes; Complete Time: 14:31 ms3 10/28 12:07 Order name: CT Abd/Pelvis - Without Contrast; Complete Time: 12:49 ms3 10/28 12:07 Order name: IV Saline Lock; Complete Time: 12:38 ms3 10/28 12:07 Order name: Labs collected and sent; Complete Time: 12:38 ms3 Administered Medications: 12:44 Drug: NS 0.9% IV 1000 ml Route: IV; Rate: 1 bolus; Site: right wrist; db 14:00 Follow up: Response: No adverse reaction; IV Status: Completed infusion; IV Intake: db 1000ml 12:44 Drug: TORadol - Ketorolac IVP 15 mg Route: IVP; Site: right wrist; db 14:30 Follow up: Response: No adverse reaction db 12:44 Drug: Ondansetron IVP 4 mg Route: IVP; Site: right wrist; db 14:00 Follow up: Response: No adverse reaction db 12:44 Drug: morphine IVP or IV 4 mg Route: IVP; Infused Over: 4 mins; Site: right wrist; db 14:30 Follow up: Response: No adverse reaction db Disposition Summary: 10/28/22 14:39 Discharge Ordered Location: Home ms3 Condition: Stable ms3 Diagnosis - Kidney stone ms3 - Hydronephrosis ms3 Followup: ms3 - With: Vikash Lagunas MD - When: 2 - 3 days - Reason: Recheck today's complaints Discharge Instructions: - Discharge Summary Sheet ms3 - Kidney Stones, [id number] ms3 Forms: - Medication Reconciliation Form ms3 - Thank You Letter ms3 - Antibiotic Education ms3 - Prescription Opioid Use ms3 - Work release form db Prescriptions: - Hydrocodone-Acetaminophen 5-325 mg Oral Tablet - take 1 tablet by ORAL route every 6 hours As needed; 12 tablet; Refills: 0, ms3 Product Selection Permitted Signatures: Dispatcher [employer] Radha Mcpherson RN RN Peter Nam DO DO ms3 Nicolle Licona RN RN db
[2022-10-28 15:39] VITALS: TEMP 98.4
[2022-10-28 15:41] VITALS: BP 120/75; O2SAT 96
== END 2022-10-28 15:15 | disposition home or self-care (01) ==
LOC: ER 11:55
DX: N20.0 Calculus of kidney (principal); N13.30 Unspecified hydronephrosis; Z87.442 Personal history of urinary calculi
CPT/HCPCS: 85025; 36415; 81003; 80053; 74176; J2405; J7030